=== PATIENT | male | born 1985 | race African-American/Black ===

== ENCOUNTER 2021-08-26 20:02 | Emergency (ER) | payer OTHER ==
[2021-08-26 20:26] VITALS: BP 150/100; PULSE 89; TEMP 99.2; BMI 28.5
== END 2021-08-26 22:32 | disposition home or self-care (01) ==
LOC: SUPCPDRO 20:02 → FER 20:02
DX: S93.401A Sprain of unspecified ligament of right ankle, initial encounter (principal); X50.0XXA Overexertion from strenuous movement or load, initial encounter; Y93.79 Activity, other specified sports and athletics
CPT/HCPCS: 73610-TC-RT-FY; 73630-TC-RT-FY; 99283-25